=== PATIENT | female | born 1940 | race Two or more races ===

== ENCOUNTER 2024-07-23 17:57 | Emergency (ER) | payer OTHER ==
[~2024-07-23] VITALS: Ht 165.1 cm; Wt 63.0 kg
[2024-07-23] MEDS ORDERED: FOLIC ACID1 MG (18:07)
[2024-07-23] MEDS ORDERED: LIPITOR40 M1 (18:07)
[2024-07-23] MEDS ORDERED: COMPAZINE PO (18:07)
[2024-07-23] MEDS ORDERED: PEPCID AC20 MG (18:08)
[2024-07-23] MEDS ORDERED: WELLBUTRIN XL150 M1 (18:08)
[2024-07-23] MEDS ORDERED: MIDODRINE HCL5 MG (18:08)
[2024-07-23] MEDS ORDERED: PRILOSEC OTC20 MG (18:08)
[2024-07-23] MEDS ORDERED: ZOVIRAX400 MG (18:08)
[2024-07-23] MEDS ORDERED: CYTOXAN (18:09)
[2024-07-23] MEDS ORDERED: CALCIUM500 M1 (18:09)
[2024-07-23] MEDS ORDERED: 0.9 % SODIUM CHLORIDE 1,000 ML IV SCH (18:45)
[2024-07-23] MEDS ORDERED: FAMOTIDINE/PF 20 MG/2 ML VIAL ONE (19:17)
[2024-07-23 19:31] LABS: HEMATOCRIT 42.2 % (36.0-45.00); HEMOGLOBIN 14.4 g/dL (12.0-15.00); MEAN CELL VOLUME 90.4 fL (80.00-100.00); MEAN CORPUSCULAR HEMOGLOBIN 30.8 pg (27.00-32.0); MEAN CORPUSCULAR HGB CONC 34.1 g/dl (32.0-36.0); PLATELET COUNT 190 K/uL (150-450); RED BLOOD COUNT 4.67 M/uL (4.00-6.00)
[2024-07-23 19:52] LABS: INR 1.01
[2024-07-23 19:59] LABS: ALBUMIN 2.3 gm/dL (3.4-5.0); BILIRUBIN TOTAL 0.35 mg/dL (0.3-1.2); CALCIUM 7.6 mg/dL (8.5-10.1); CREATININE SERUM 1.22 mg/dL (0.55-1.02); GFR 42.2; GLOBULINA 2.7 G/DL (2.4-3.5); POTASSIUM 4.76 mEq/L (3.5-5.1)
[2024-07-23 20:17] LABS: URINE EPITHELIAL CELLS 18.1 uL (0.0-38.8); URINE RBC 5.4 uL (0.0-20.8); URINE WBC 8.5 uL (0.0-23.2)
[2024-07-23 20:34] LABS: URINE APPEARANCE Clear; URINE BILIRRUBIN Negative (NEGATIVE); URINE BLOOD Negative; URINE COLOR Yellow; URINE GLUCOSE Negative (NEGATIVE); URINE KETONE Negative (NEGATIVE); URINE LEUKOCYTE Negative; URINE NITRATE Negative; URINE PROTEIN Trace (NEGATIVE); URINE UROBILINOGEN 0.2 E.U./dl
== END 2024-07-23 23:23 | disposition home or self-care (01) ==
LOC: ER 17:57
PROVIDERS: General Practice
DX: R53.1 Weakness (principal); R06.02 Shortness of breath; R68.89 Other general symptoms and signs; Z20.822 Contact with and (suspected) exposure to COVID-19; Z88.6 Allergy status to analgesic agent; Z88.8 Allergy status to other drugs, medicaments and biological substances; Z85.89 Personal history of malignant neoplasm of other organs and systems
CPT/HCPCS: 36415; 70450; 71250; 93005; 96365; 99284; J3490